=== PATIENT | female | born 1960 | race Caucasian/White ===

== ENCOUNTER → 2017-01-13 | Outpatient (CLI) | payer OTHER ==
--- NOTE | 2017-01-13 08:31 | REP ---
MAXILLOFACIAL CT WITHOUT CONTRAST: HISTORY: Chronic sinusitis. The patient is status post bilateral uncinectomy and partial ethmoidectomy. Minimal mucosal thickening is present in the maxillary, right ethmoid and sphenoid sinuses. The remaining sinuses are clear. The middle and inferior nasal turbinates are partially paradoxical. 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 There is minimal deviation of the nasal septum to the left. The cribriform plate, medial sprague of the orbits and optic canals are intact. The carotid canals form a segment of the posterolateral sprague of the sphenoid sinus. IMPRESSION: 1. Postoperative change as described above. 2. Sinus mucosal thickening as described above. Signed by Ephraim Lerma MD 01/13/2017 08:40 A
== END ==
LOC: M RAD 06:59
PROVIDERS: ATTEND Otolaryngology
DX: J31.0 Chronic rhinitis (principal)

== ENCOUNTER → 2018-04-04 | Outpatient (REF) | payer OTHER | LOC: M SFHCLERA 16:03 | DX: J02.9 Acute pharyngitis, unspecified (principal) ==

== ENCOUNTER → 2023-05-15 | Outpatient (REF) | payer OTHER | LOC: M SFHCWAGY 15:04 | PROVIDERS: ATTEND Nurse Practitioner Family | DX: Z12.4 Encounter for screening for malignant neoplasm of cervix (principal); Z01.419 Encounter for gynecological examination (general) (routine) without abnormal findings; Z77.9 Other contact with and (suspected) exposures hazardous to health ==